=== PATIENT | male | born 1965 | race African-American/Black ===

== ENCOUNTER 2025-04-17 20:07 | Emergency (ER) | payer MEDICAID, SELFPAY ==
--- NOTE | ~2025-04-17 | XR_ITS ---
HISTORY: knee pain COMPARISON: None TECHNIQUE: 4 views of the right knee were performed FINDINGS: No acute or subacute fracture. Anterior periosteal reaction within the mid to distal femur, a nonspecific finding Periarticular osteopenia suggesting osteoarthritis. Medial and lateral tibiofemoral joint space narrowing is identified. Small suprapatellar joint effusion is identified. The infrapatellar joint space is clear. IMPRESSION: Small suprapatellar joint effusion with degenerative disease. No acute fracture. Periosteal reaction within the mid to distal femur, a nonspecific finding Reviewed, dictated and finalized at location A.
--- NOTE | ~2025-04-17 | XR_ITS ---
HISTORY: knee pain COMPARISON: None TECHNIQUE: 4 views of the left knee were performed FINDINGS: No acute or subacute fracture. Medial and lateral tibiofemoral joint space narrowing is identified. Patellofemoral joint space narrowing is also noted. Redemonstration of a anterior periosteal reaction within the mid to distal femur. Dense suprapatellar joint effusion is identified. The infrapatellar joint space is clear. IMPRESSION: Dense suprapatellar joint effusion with significant tricompartmental degenerative diseas e. Redemonstration of a periosteal reaction within the mid to distal femur, as detailed above. Reviewed, dictated and finalized at location A. IMPRESSION: Dense suprapatellar joint effusion with significant tricompartment al degenerative disease. Redemonstration of a periosteal reaction within the mid to distal femur, as det armando above.
--- NOTE | ~2025-04-17 | XR_ITS ---
HISTORY: pain COMPARISON: None TECHNIQUE: 3 views of the right hand were performed. FINDINGS: No acute fracture is identified. Prior fracture deformity within the fifth metacarpal with subsequent remodeling. 9 mm calcified extra-articular osseous fragment adjacent to the distal head of the second metatarsal for which a productive osteoarthritis is suspected. Gullwing deformity is identified within the proximal interphalangeal joint spaces of the second, thir d, fourth and fifth digits. Periarticular osteopenia is redemonstrated. Disorganized periosteal reaction along the radial margin of the shaft of the first metatarsal. Single-layer periosteal reaction within the distal shaft of both the radius and ulna. The carpal arcs are intact. Moderate radiocarpal joint space narrowing with sclerosis of the distal radius is present. Soft tissue swelling overlying the third metacarpal phalangeal joint space. No radiopaque foreign body is identified. IMPRESSION: Significant degenerative disease without acute fracture, as detailed above. Reviewed, dictated and finalized at location A. IMPRESSION: Significant degenerative disease without acute fracture, as detaile d above.
--- NOTE | ~2025-04-17 | XR_ITS ---
HISTORY: pain COMPARISON: None TECHNIQUE: 3 views of the left hand were performed. FINDINGS: No acute fracture is identified. Gullwing deformity is identified within the proximal interphalangeal joint spaces of the second, thir d, fourth and fifth digits. Trace distal joint space narrowing is also noted, although to a lesser degree. Degenerative disease is identified within the first carpometacarpal joint space. The carpal arcs are intact. Moderate radiocarpal joint space narrowing with sclerosis of the distal radius is present. Periarticular osteopenia is present consistent with osteoarthritis. Redemonstration of a single layer (lamellar) periosteal reaction within the distal ulna, similar to t he findings within the bilateral femurs which may represent physiologic periostitis versus a systemic process. No significant soft tissue swelling. No radiopaque foreign body is identified. IMPRESSION: Degenerative disease. Periarticular osteopenia suggesting osteoarthritis Reviewed, dictated and finalized at location A.
[2025-04-17 20:19] VITALS: BP 152/76; PULSE 93; RESP 18; TEMP 36.8; O2SAT 97
--- NOTE | 2025-04-17 21:50 | ED.LOWEXIN ---
HPI - Extremity Injury (Lower) General Chief Complaint: Extremity Injury, Lower Stated Complaint: Right, left knee Time Seen by Provider: 04/17/25 20:25 History of Present Illness HPI Narrative: 60-year-old male with no reported past medical history presents to the emergency department for 1 week of bilateral hand and knee pain. Patient states his knees her worse in the mornings and when he attempts to stand up from a chair. He also is reporting mild edema to his lower extremities that improves when he props his feet up at night. He denies fevers. Denies history of inflammatory or rheumatoid arthritis. Denies injuries or trauma. Related Data Allergies Allergy/AdvReac Type Severity Reaction Status Date / Time No Known Allergies Allergy Verified 04/17/25 20:09 Review of Systems Review of Systems: All systems reviewed & are unremarkable except as noted in HPI and below Exam Narrative: GENERAL: Well-appearing, well-nourished, and in no acute distress. HEAD: Normocephalic, atraumatic. EYES: EOMI. ENT: Nares clear, no rhinorrhea or epistaxis. Mucous membranes moist. NECK: Supple. CHEST: Clear to auscultation. No respiratory distress. HEART: Regular rate and rhythm. No murmur heard. Normal peripheral pulses. EXTREMITIES: BUE: Diffuse edema to the bilateral MCP and PIP joints, more so to the 2nd and 3rd digits. Full range of motion of fingers. Cap refill less than 2 throughout. Radial pulses 2+. No obvious deformities. Compartments soft. Sensation intact. BLE: Diffuse tenderness to bilateral medial and lateral joint lines of the knee with mild effusions. No warmth or erythema. No overlying skin changes. Patient has full active and passive range of motion of knee without difficulty. Trace dependent edema to bilateral lower extremities. 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 DP pulses are 2+. Sensation intact. Negative Homans bilaterally. SKIN: Warm, dry, no rash. NEURO: No focal deficits. Alert and oriented x3 Course Vital Signs Vital signs: Vital Signs Temperature 98.2 F 04/17/25 20:19 Pulse Rate 93 04/17/25 20:19 Respiratory Rate 18 04/17/25 20:19 Blood Pressure 152/76 H 04/17/25 20:19 Pulse Oximetry 97 04/17/25 20:19 Temperature 98.1 F 04/17/25 22:12 Pulse Rate 84 04/17/25 22:12 Respiratory Rate 18 04/17/25 22:12 Blood Pressure 144/74 H 04/17/25 22:12 Pulse Oximetry 98 04/17/25 22:12 MDM - Extremity Injury (Lower) MDM Narrative Medical decision making narrative: 60-year-old male with no reported past medical history presents to the emergency department for bilateral hand pain and bilateral knee pain for the past week. Patient denies injury or trauma. Vital signs are stable. Patient is afebrile and nontoxic appearing. Exam is notable for the above. Patient is neurovascularly intact. No signs of septic arthritis. X-rays of bilateral knees and hands are notable for degenerative changes and evidence of osteoarthritis, see impression below. Patient was updated on results. Given acute onset polyarticular arthritis inflammatory changes on exam, I am concerned for an inflammatory arthritis such as RA. Patient will be started on course of naproxen. He was given a dose here with improvement in symptoms. He was given follow-up for PCP for further workup and management and return precautions. He is agreeable with the plan verbalized understanding. Discharged in stable condition. Imaging Data Radiologist's impression: Impressions Knee X-Ray 04/17/25 22:46 IMPRESSION: Small suprapatellar joint effusion with degenerative disease. No acute fracture. Periosteal reaction within the mid to distal femur, a nonspecific finding Knee X-Ray 04/17/25 22:53 IMPRESSION: Dense suprapatellar joint effusion with significant tricompartmental degenerative disease. Redemonstration of a periosteal reaction within the mid to distal femur, as detailed above. Hand X-Ray 04/17/25 22:55 IMPRESSION: Degenerative disease. Periarticular osteopenia suggesting osteoarthritis Hand X-Ray 04/17/25 23:03 IMPRESSION: Significant degenerative disease without acute fracture, as detailed above. Discharge Plan Discharge Clinical Impression: Acute bilateral knee pain, Bilateral hand pain, Osteoarthritis Patient Disposition: Home Condition: Stable Instructions: Antibiotic Form, Arthritis (ED) Additional Instructions: Your evaluated in the emergency department for knee pain and hand pain. Your presentation is concerning for arthritis in her x-rays confirm this. The arthritis may be due to degeneration from aging versus an inflammatory arthritis such as RA as discussed. Please follow-up with the primary care provider for further evaluation and management. Take naproxen as directed for pain. Return to the emergency department if he develops significantly worsening pain, fevers, or other concerning symptoms. Patient Language: Nepali Prescriptions: New naproxen 500 mg tablet 500 mg PO BID PRN (Reason: pain) Qty: 20 0RF Follow-up/Referrals: UNKNOWN,DOCTOR [Primary Care Provider] - Brenda Rubalcava DO [Physician] -
[2025-04-17] MEDS: NAPROXEN 500 MG TABLET PO (21:58)
[2025-04-17 22:12] VITALS: BP 144/74; PULSE 84; RESP 18; TEMP 36.7; O2SAT 98
--- NOTE | 2025-04-17 22:36 | PC.NURSE ---
Report received from ANGI Hardy. Assumed care of patient at this time.
== END 2025-04-17 23:48 | disposition home or self-care (01) ==
PROVIDERS: Emergency Provider Physician Assistant
DX: M79.641 Pain in right hand (principal); M79.642 Pain in left hand; M25.562 Pain in left knee; M25.561 Pain in right knee; M19.90 Unspecified osteoarthritis, unspecified site
CPT/HCPCS: 73130; 73564; 99284; A9270

== ENCOUNTER 2025-05-30 04:15 | Emergency (ER) | payer MEDICAID, SELFPAY ==
--- NOTE | ~2025-05-30 | XR_ITS ---
EXAMINATION: XR knee LT 3V DATE: 05/30/2025 05:00 INDICATION: Left knee injury TECHNIQUE: Anteroposterior, oblique and crosstable lateral views of the left knee were obtained COMPARISON: None. FINDINGS: Alignment is normal. No fracture. Joint spaces appear normal on nonweightbearing imaging. Again seen is nonaggressive appearing periosteal reaction along the distal femur. No joint effusion/layering lip ohemarthrosis. Prepatellar soft tissue swelling. IMPRESSION: 1. No left knee joint effusion or acute osseous abnormality. 2. Nonspecific nonaggressive appearing periosteal reaction along the distal femur. This can be seen w ith hypertrophic pulmonary osteoarthropathy and would recommend correlation with chest radiograph. Reviewed, dictated and finalized at location A. IMPRESSION: 1. No left knee joint effusion or acute osseous abnormality. 2. Nonspecific nonaggressive appearing periosteal reaction along the distal fem ur. This can be seen with hypertrophic pulmonary osteoarthropathy and would rec ommend correlation with chest radiograph.
--- NOTE | ~2025-05-30 | XR_ITS ---
EXAMINATION: XR knee RT 3V DATE: 05/30/2025 05:00 INDICATION: Right knee trauma TECHNIQUE: Anteroposterior, oblique and crosstable lateral views of the right knee were obtained COMPARISON: None. FINDINGS: Alignment is normal. No fracture. Joint spaces appear normal on nonweightbearing imaging. Tiny osteo phyte at the upper pole of the patella and small enthesophytes along the anterior margin of the mann la. No joint effusion/layering lipohemarthrosis. There is prepatellar soft tissue swelling.. IMPRESSION: 1. No right knee joint effusion or acute osseous abnormality. Reviewed, dictated and finalized at location A.
[2025-05-30 04:22] VITALS: BP 145/80; PULSE 86; RESP 15; TEMP 36.6; O2SAT 98
--- NOTE | 2025-05-30 05:42 | ED.EXTPRO ---
HPI - Extremity Problem General Chief complaint: Extremity Problem,Nontraumatic Stated complaint: knee pain Time Seen by Provider: 05/30/25 04:28 History of Present Illness HPI Narrative: Patient was recently diagnosed with arthritis presents here with exacerbation of his knee pain, he has not been able to follow-up with orthopedic surgeon unfortunately due to the surgeon being too far away. He has tried a knee brace, however he does have to walk a lot for his job and recently his knee gave out from under him. Thankfully did not hit his head or anything else. Related Data Allergies Allergy/AdvReac Type Severity Reaction Status Date / Time No Known Allergies Allergy Verified 04/17/25 20:09 Review of Systems Review of Systems: All systems reviewed & are unremarkable except as noted in HPI and below Exam Narrative: EXAMINATION OF ORGAN SYSTEMS/BODY AREAS: Constitutional: Vital signs per nursing GENERAL:[No acute distress, non-toxic appearing.] HEAD: Normal with no signs of head trauma. EYES: EOMI, conjunctiva normal ENT: Hearing grossly intact LUNGS: Nonlabored breathing. HEART: [Regular rate and rhythm] ABD: [Soft], [nontender to palpation] EXT: Normal range of motion, no redness or swelling to the legs or knees, he does have some tenderness to palpation of bilateral knees SKIN: [No rashes or lesions.] NEURO: [Alert and oriented x 3. No gross focal sensory or strength deficits.] PSYCH: Normal affect Course Vital Signs Vital signs: Vital Signs Temperature 97.9 F 05/30/25 04:22 Pulse Rate 86 05/30/25 04:22 Respiratory Rate 15 05/30/25 04:22 Blood Pressure 145/80 H 05/30/25 04:22 Pulse Oximetry 98 05/30/25 04:22 Oxygen Delivery Room Air 05/30/25 04:22 Temperature 97.9 F 05/30/25 04:22 Pulse Rate 86 05/30/25 04:22 Respiratory Rate 15 05/30/25 04:22 Blood Pressure 145/80 H 05/30/25 04:22 Pulse Oximetry 98 05/30/25 04:22 Oxygen Delivery Room Air 05/30/25 04:22 MDM - Extremity (Nontraumatic) MDM Narrative Medical decision making narrative: Patient presents with acute on chronic bilateral knee pain, x-rays do not show any obvious acute fracture on my independent interpretation, here he has knee wraps, I will trial a short course of steroids and NSAIDs, and I did provide follow-up information for an orthopedic surgeon who lives closer to him that he thinks he should be able to get to. I have let him know that if his symptoms were to worsen he can always return to emergency room. Patient agreeable to this plan. Discharge Plan Discharge Clinical Impression: Acute bilateral knee pain Patient Disposition: Home Condition: Stable Instructions: Knee Pain (ED) Additional Instructions: Please try the medications as prescribed, and follow up with orthopedic surgeon. You can always return to the emergency room for any further issues. Patient Language: Pakistani Prescriptions: New prednisone 20 mg tablet 40 mg PO DAILY 4 Days Qty: 8 0RF naproxen 250 mg tablet 250 mg PO BID PRN (Reason: pain) Qty: 20 0RF No Action naproxen 500 mg tablet 500 mg PO BID PRN (Reason: pain) Qty: 20 0RF Follow-up/Referrals: Patrick Floyd MD [Physician] - 2 Days UNKNOWN,DOCTOR [Primary Care Provider] - Stand Alone Forms: Work/School Release IP
[2025-05-30 05:49] VITALS: BP 158/89; PULSE 81; RESP 18; O2SAT 98
== END 2025-05-30 05:49 | disposition home or self-care (01) ==
PROVIDERS: Emergency Provider Emergency Medicine
DX: M25.562 Pain in left knee (principal); M25.561 Pain in right knee; M19.90 Unspecified osteoarthritis, unspecified site
CPT/HCPCS: 73562; 99284; J7512

== ENCOUNTER 2025-10-27 18:35 | Emergency (ER) | payer MEDICAID, SELFPAY ==
[2025-10-27 19:03] VITALS: BP 140/90; PULSE 97; RESP 16; TEMP 37; O2SAT 99
[2025-10-27 23:01] VITALS: BP 161/72; PULSE 91; RESP 18; TEMP 36.4; O2SAT 97
[2025-10-28 01:12] VITALS: BP 138/82; PULSE 92; RESP 18; TEMP 37.1; O2SAT 95
[2025-10-28 02:29] VITALS: BP 159/83; O2SAT 100
[2025-10-28 02:31] VITALS: BP 145/84; O2SAT 96
--- NOTE | 2025-10-28 02:33 | ED.EXTPRO ---
HPI - Extremity Problem General Chief complaint: Extremity Problem,Nontraumatic Stated complaint: bilateral hands knee ankle swelling Time Seen by Provider: 10/28/25 02:22 History of Present Illness HPI Narrative: 60-year-old male with history of degenerative joint disease of bilateral hands and knees. He states he has been doing with arthritis for quite some time but has not seen a doctor about this. Previously been prescribed steroids in the proximal with good effect. He bought some wrwb-iux-pzceage anti-inflammatories that are only mildly improving his symptoms. States that when his knees touches bili night he gets worse pain and especially in the morning when he gets up he has worsening pain. Endorses stiffening and swelling in both of his hands and knees. Denies any traumatic injuries. Has not seen a orthopedic provider for help. No other complaints or issues. Related Data Allergies Allergy/AdvReac Type Severity Reaction Status Date / Time No Known Allergies Allergy Verified 04/17/25 20:09 Review of Systems Review of Systems: As reviewed above in HPI All systems reviewed & are unremarkable except as noted in HPI and below Exam Narrative: GENERAL: [Well-appearing, well-nourished, and in no acute distress.] HEAD: [Normocephalic, atraumatic.] EYES: [PERRLA and EOMI.] ENT: Nares clear, no rhinorrhea or epistaxis. Mucous membranes moist. NECK: Supple. CHEST: [Clear to auscultation. No respiratory distress.] HEART: [Regular rate and rhythm]. No murmur heard. [Normal peripheral pulses.] ABDOMEN: [Soft, nondistended], [nontender], [No rigidity or guarding] EXTREMITIES: Swelling along the major joints of the bilateral hands and bilateral knees. Tenderness to palpation but no overlying skin deformity or warmth. Full dishcloth folder strength and rotation of the hand and wrist joints. Ambulatory without difficulty. No deformities or step-offs in the bilateral legs. No signs of infection. SKIN: Warm, dry, no rash. NEURO: [No focal deficits]. Alert and oriented [x3.] PSYCH: [Normal mood and affect.] Course Vital Signs Vital signs: Vital Signs Temperature 37.0 C 10/27/25 19:03 Pulse Rate 97 10/27/25 19:03 Respiratory Rate 16 10/27/25 19:03 Blood Pressure 140/90 10/27/25 19:03 Pulse Oximetry 99 10/27/25 19:03 Oxygen Delivery Room Air 10/27/25 19:03 Temperature 36.7 C 10/28/25 02:46 Pulse Rate 69 10/28/25 02:46 Respiratory Rate 14 10/28/25 02:46 Blood Pressure 135/76 10/28/25 02:46 Pulse Oximetry 96 10/28/25 02:46 Oxygen Delivery Room Air 10/27/25 19:03 MDM MDM Narrative Medical decision making narrative: 60-year-old male with history of degenerative joint disease of bilateral hands and knees. He states he has been doing with arthritis for quite some time but has not seen a doctor about this. Previously been prescribed steroids in the proximal with good effect. He bought some bdwi-jwi-taniqcw anti-inflammatories that are only mildly improving his symptoms. States that when his knees touches bili night he gets worse pain and especially in the morning when he gets up he has worsening pain. Endorses stiffening and swelling in both of his hands and knees. Denies any traumatic injuries. Has not seen a orthopedic provider for help. No other complaints or issues. Swelling along the major joints of the bilateral hands and bilateral knees. Tenderness to palpation but no overlying skin deformity or warmth. Full dishcloth folder strength and rotation of the hand and wrist joints. Ambulatory without difficulty. No deformities or step-offs in the bilateral legs. No signs of infection. Patient is well appearing not any distress. He has normal vital signs and afebrile. No tachycardia. Pain is tolerable but he does have evidence of severe arthritis bilaterally. most likely osteoarthritis but could also be rheumatoid arthritis or other issue. He has been evaluated several times this year for similar events. X-rays were previously obtained showing severe degenerative disease. Patient will be treated with steroids anti-inflammatories and prescriptions provided to his pharmacy. He will be referred to orthopedics for outpatient evaluation and given return precautions prior to safe discharge at this time. Differential Diagnosis Differential Diagnosis: most likely osteoarthritis but could also be rheumatoid arthritis or other issue. Discharge Plan Discharge Clinical Impression: Polyarthritis Patient Disposition: Home Condition: Stable Instructions: Antibiotic Form, Arthritis (ED) Additional Instructions: Symptoms and previous images confirm polyarticular arthritis likely osteoarthritis with degenerative disease over the years. Will treat this with a combination of anti-inflammatories and steroids until he can see a specialist. If the knee pain continuously bothers you he might be a candidate for knee replacement but would have this discussion with orthopedics. we have given your referral to a local physician to call Return with any emergent concerns. Patient Language: Yakut Prescriptions: New prednisone 50 mg tablet 50 mg PO DAILY 5 Days Qty: 5 0RF ketorolac 10 mg tablet 10 mg PO Q8H PRN (Reason: pain) 5 Days Qty: 20 0RF Rx Instructions: maximum total duration of 5 days from all oral, intranasal, or parenteral formulations No Action naproxen 500 mg tablet 500 mg PO BID PRN (Reason: pain) Qty: 20 0RF prednisone 20 mg tablet 40 mg PO DAILY 4 Days Qty: 8 0RF naproxen 250 mg tablet 250 mg PO BID PRN (Reason: pain) Qty: 20 0RF Follow-up/Referrals: Yomi Hinkle MD [Physician, Orthopedics] - 2 Weeks Referral Note: Arthritis pain with DJD UNKNOWN,DOCTOR [Non-Staff] Stand Alone Forms: Work/School Release IP Time of Disposition: 02:37
[2025-10-28 02:46] VITALS: BP 135/76; PULSE 69; RESP 14; TEMP 36.7; O2SAT 96
[2025-10-28] MEDS: dexAMETHasone SOD PHOS INJ 10 MG/ML 1 ML VIAL IM (02:55)
[2025-10-28] MEDS: KETOROLAC 30 MG/ML VIAL (*BKC) IM (02:57)
== END 2025-10-28 03:26 | disposition home or self-care (01) ==
LOC: ANHED 10-28 02:41
PROVIDERS: Emergency Provider Student in an Organized Health Care Education/Training Program
DX: M19.042 Primary osteoarthritis, left hand (principal); M19.041 Primary osteoarthritis, right hand; M17.0 Bilateral primary osteoarthritis of knee
CPT/HCPCS: 96372; 99284; J1100; J1885